=== PATIENT | female | born 1990 | race Caucasian/White ===

== ENCOUNTER 2022-11-28 14:16 | Day surgery (SDC) | payer OTHER ==
[2022-11-28 15:03] VITALS: BMI 26.6
[2022-11-28] MEDS ORDERED: hydrALAZINE 20 MG/ML VIAL SLOW IVP PRN (15:44)
== END 2022-11-28 17:00 | disposition home or self-care (01) ==
LOC: CSHLD/OP 14:16
PROVIDERS: ATTEND Obstetrics & Gynecology
DX: O26.853 Spotting complicating pregnancy, third trimester (principal); O26.893 Other specified pregnancy related conditions, third trimester; R10.9 Unspecified abdominal pain; Z88.2 Allergy status to sulfonamides; Z88.5 Allergy status to narcotic agent; Z88.1 Allergy status to other antibiotic agents; Z91.040 Latex allergy status; Z3A.36 36 weeks gestation of pregnancy
CPT/HCPCS: 87480; 87510; 87660; 99283

== ENCOUNTER 2022-12-23 19:30 | Inpatient (IN) | payer OTHER ==
[2022-12-31] MEDS ORDERED: Bupivacaine/Epinephrine 0.25% 30 ML VIAL ONE (08:00)
[2022-12-31] MEDS ORDERED: Ondansetron PF 4 MG/2 ML Vial IVP PRN (21:48)
[2022-12-31] MEDS ORDERED: Diphenoxylate HCl/Atropine Tablet PO PRN ×2 (21:48)
[2022-12-31] MEDS ORDERED: NS w/ Oxytocin 30 units 500 ML IV SCH ×2 (21:48)
[2022-12-31] MEDS ORDERED: Zolpidem Tartrate 5 MG TAB PO PRN (21:48)
[2022-12-31] MEDS ORDERED: Methylergonovine 0.2 MG/ML VIAL IM PRN (21:48)
[2022-12-31] MEDS ORDERED: Carboprost 250 MCG/ML AMP IM PRN (21:48)
[2022-12-31] MEDS ORDERED: hydrALAZINE 20 MG/ML VIAL SLOW IVP PRN (21:48)
[2022-12-31] MEDS ORDERED: Acetaminophen 500 MG TAB PO PRN (21:48)
[2022-12-31] MEDS ORDERED: Acetaminophen/Codeine 30-300mg Tablet PO PRN ×2 (21:48)
[2022-12-31] MEDS ORDERED: Lidocaine 1% (PF) 30 ML VIAL SC PRN (21:48)
[2022-12-31] MEDS ORDERED: Lactated Ringer's 1,000 ML IV SCH (21:48)
[2022-12-31] MEDS ORDERED: Ibuprofen 800 MG TAB PO PRN (21:48)
[2022-12-31] MEDS ORDERED: Promethazine HCl 25 MG/ML VIAL IM PRN (21:48)
[2022-12-31] MEDS ORDERED: Misoprostol 200 MCG TAB PR PRN (21:48)
[2022-12-31 22:56] LABS: Mean Corpuscular HGB CONC 33.3 g/dL (32.0-36.0); Mean Corpuscular Hemoglobin 28.1 pg (27.0-33.0); Mean Corpuscular Volume 84.4 fl (81.6-98.3); Mean Platelet Volume 10.5 fl (7.4-10.4); Platelet Count 238 10x3/uL (150-450); RBC Distribution Width 13.5 % (11.5-14.5); Red Blood Cell (RBC) Count 3.91 10x6/uL (3.90-5.03); White Blood Cell (WBC) Count 10.6 10x3/uL (3.5-10.5)
[2022-12-31] MEDS: Misoprostol 100 MCG TAB VAG SCH (23:10)
[2023-01-01 00:05] LABS: HBSAg Index 0.16 S/CO (0-0.99); Hep B Surf Ag Non-Reactive S/CO (NonReactive); Syphilis Antibody Nonreactive (Nonreactive); Syphilis Antibody Index 0.04 S/CO (<1.00 Non-Reactive)
[2023-01-01 00:20] VITALS: BMI 27.4
[2023-01-01 03:47] LABS: SARS-CoV-2 NAA Rapid Test Not Detected (NotDetected)
[2023-01-01 07:44] LABS: ALT (SGPT) 11 U/L (8-55); AST (SGOT) 18 U/L (5-34); Albumin 3.1 g/dL (3.5-5.0); Alkaline Phosphatase 263 U/L (40-110); Anion Gap 14 mmol/L (10-20); BUN (Urea Nitrogen) 8 mg/dL (7.0-18.7); Bilirubin, Total 0.3 mg/dL (0.2-1.2); Calc. Creatinine Clearance 134 mL/min (70-130); Calcium 8.6 mg/dL (7.8-10.44); Carbon Dioxide 19 mmol/L (22-29); Chloride 107 mmol/L (98-107); Estimated GFR 110; Globulin 2.8 g/dL (2.4-3.5); Glucose 102 mg/dL (70-105); Potassium 3.4 mmol/L (3.5-5.1); Protein, Total 5.9 g/dL (6.0-8.3); Sodium 137 mmol/L (136-145)
[2023-01-01] MEDS ORDERED: Fentanyl 2 mcg/Bup 0.1% Cadd 100 ML ONE ×2 (08:00→15:43)
[2023-01-01] MEDS ORDERED: Fentanyl 100 MCG/2 ML VIAL ONE ×2 (08:41→23:15)
[2023-01-01] MEDS ORDERED: diphenhydrAMINE 50 MG/ML VIAL IVP PRN (10:49)
[2023-01-01] MEDS ORDERED: ePHEDrine Sulfate 50 MG/10 ML VIAL SLOW IVP PRN (10:49)
[2023-01-01] MEDS ORDERED: Acetaminophen 325 MG TAB PO PRN (10:49)
[2023-01-01] MEDS ORDERED: Ondansetron PF 4 MG/2 ML Vial IVP PRN (10:49)
[2023-01-01] MEDS ORDERED: Moisturizing Cream (Eucerin) 113 GM JAR TOP PRN (10:49)
[2023-01-01] MEDS ORDERED: Promethazine HCl 25 MG/ML VIAL IM PRN (10:49)
[2023-01-01] MEDS ORDERED: Naloxone HCl 0.4 mg/ml Vial IVP PRN ×2 (10:49)
[2023-01-01] MEDS ORDERED: Lactated Ringer's 500 ML IV PRN (10:49)
[2023-01-01] MEDS ORDERED: Communication Order-Pharmacy FS SCH (11:00)
[2023-01-01] MEDS ORDERED: Fentanyl 2 mcg/Bupivacaine 0.1% Cassette 100 ML EPIDURAL SCH (11:00)
[2023-01-01] MEDS ORDERED: Azithromycin 500 MG VIAL ONE (22:21)
[2023-01-01] MEDS ORDERED: Famotidine/PF 20 mg/2ml Vial ONE (22:21)
[2023-01-01] MEDS ORDERED: CEFAZOLIN 2 GM VIAL ONE (22:21)
[2023-01-01] MEDS ORDERED: Bicitra 30 ML UDCUP PO PRN (22:28)
[2023-01-01] MEDS ORDERED: Famotidine/PF 20 mg/2ml Vial SLOW IVP PRN (22:28)
[2023-01-01] MEDS ORDERED: CEFAZOLIN 2 GM in Sodium Chloride 0.9% 100 ML IVPB SCH (22:30)
[2023-01-01] MEDS ORDERED: Azithromycin 500 MG in Sodium Chloride 0.9% 250 ML 250 ML IVPB SCH (22:30)
[2023-01-01] MEDS ORDERED: Ondansetron PF 4 MG/2 ML Vial ONE (23:05)
[2023-01-01] MEDS ORDERED: Phenylephrine 40 MG/NS 250 ML 250 ML ONE (23:05)
[2023-01-01] MEDS ORDERED: Oxytocin 10 UNITS/ML VIAL ONE (23:05)
[2023-01-01] MEDS ORDERED: Ketorolac Tromethamine 30 MG/ML VIAL ONE (23:05)
[2023-01-01] MEDS ORDERED: PROPOFOL 20 ML ONE (23:15)
[2023-01-01] MEDS ORDERED: Succinylcholine 200 MG/10 ml SYRINGE FS ONE (23:26)
[2023-01-01] MEDS ORDERED: Lidocaine 1% (PF) 30 ML VIAL ONE (23:26)
[2023-01-01] MEDS ORDERED: Morphine PF 10 MG/10 ML VIAL ONE (23:34)
[2023-01-02] MEDS ORDERED: Ondansetron HCl/PF 4 MG/2 ML Vial IVP PRN (00:08)
[2023-01-02] MEDS ORDERED: Ondansetron PF 4 MG/2 ML Vial IVP PRN (00:08)
[2023-01-02] MEDS ORDERED: Naloxone HCl 0.4 mg/ml Vial IV PRN (00:08)
[2023-01-02] MEDS ORDERED: diphenhydrAMINE 50 MG/ML VIAL IVP PRN (00:08)
[2023-01-02] MEDS ORDERED: Promethazine HCl 25 MG/ML VIAL IM PRN ×2 (00:08)
[2023-01-02] MEDS ORDERED: Promethazine HCl 25 MG SUPP PR PRN (00:08)
[2023-01-02] MEDS ORDERED: Meperidine HCl/PF 25 MG/ML VIAL SLOW IVP PRN (00:08)
[2023-01-02] MEDS ORDERED: Moisturizing Cream (Eucerin) 113 GM JAR TOP PRN (00:08)
[2023-01-02] MEDS ORDERED: Ketorolac Tromethamine 30 MG/ML VIAL IVP PRN (00:08)
[2023-01-02] MEDS ORDERED: Naloxone HCl 0.4 mg/ml Vial IVP PRN ×2 (00:08)
[2023-01-02] MEDS ORDERED: Fentanyl 100 MCG/2 ML VIAL ONE (00:11)
[2023-01-02] MEDS ORDERED: Communication Order-Pharmacy FS SCH (00:15)
[2023-01-02] MEDS ORDERED: Lanolin Ointment 7 GM TUBE TOP PRN (03:21)
[2023-01-02] MEDS ORDERED: Bisacodyl 10 MG SUPP PR PRN (03:21)
[2023-01-02] MEDS ORDERED: hydrALAZINE 20 MG/ML VIAL SLOW IVP PRN (03:21)
[2023-01-02] MEDS ORDERED: diphenhydrAMINE 25 MG CAP PO PRN (03:21)
[2023-01-02] MEDS ORDERED: Simethicone Chewable 80 MG TAB PO PRN (03:21)
[2023-01-02] MEDS ORDERED: Boostrix 0.5 ML (Tdap) VIAL (>/=7 yrs of age) IM ONE (03:21)
[2023-01-02] MEDS: Misoprostol 100 MCG TAB VAG SCH ×2 (03:55→03:56)
[2023-01-02 04:29] LABS: Hemoglobin 10.8 g/dL (12.0-15.5); Mean Corpuscular Hemoglobin 28.4 pg (27.0-33.0); Mean Corpuscular Volume 86.1 fl (81.6-98.3); Mean Platelet Volume 10.7 fl (7.4-10.4); Platelet Count 235 10x3/uL (150-450); RBC Distribution Width 13.6 % (11.5-14.5); White Blood Cell (WBC) Count 22.3 10x3/uL (3.5-10.5)
[2023-01-02] MEDS: Ferrous Sulfate 325 MG TAB PO SCH (07:34)
[2023-01-02] MEDS: Docusate 100 MG CAP PO SCH ×2 (07:42→21:03)
[2023-01-02] MEDS: Prenatal Vitamin 1 TAB PO SCH (07:42)
[2023-01-02] MEDS: HYDROcodone/Acetaminophen 5/325 mg Tablet PO PRN ×3 (12:24→21:02)
[2023-01-03] MEDS: HYDROcodone/Acetaminophen 5/325 mg Tablet PO PRN ×5 (01:42→20:52)
[2023-01-03] MEDS: Ferrous Sulfate 325 MG TAB PO SCH ×3 (03:28→20:42)
[2023-01-03] MEDS: Ibuprofen 800 MG TAB PO SCH ×3 (05:42→22:45)
[2023-01-03] MEDS: Docusate 100 MG CAP PO SCH ×2 (08:16→20:51)
[2023-01-03] MEDS: Prenatal Vitamin 1 TAB PO SCH (08:16)
[2023-01-04] MEDS: HYDROcodone/Acetaminophen 5/325 mg Tablet PO PRN ×3 (00:45→13:49)
[2023-01-04 01:27] VITALS: TEMP 97.9
[2023-01-04] MEDS: Ibuprofen 800 MG TAB PO SCH ×2 (06:03→13:49)
[2023-01-04] MEDS: Ferrous Sulfate 325 MG TAB PO SCH (07:05)
[2023-01-04] MEDS: Docusate 100 MG CAP PO SCH (07:33)
[2023-01-04] MEDS: Prenatal Vitamin 1 TAB PO SCH (07:33)
[2023-01-04 08:10] VITALS: BP 121/80
== END 2023-01-04 17:30 | disposition home or self-care (01) | DRG 787 ==
LOC: CSHLD 12-31 20:53 → CSHPED 01-02 02:19
PROVIDERS: ADMIT Obstetrics & Gynecology; ATTEND Obstetrics & Gynecology
PROC: 10D00Z1 Extraction of Products of Conception, Low, Open Approach (ICD-10-PCS; principal; 2023-01-01)
PROC: 10907ZC Drainage of Amniotic Fluid, Therapeutic from Products of Conception, Via Natural or Artificial Opening (ICD-10-PCS; 2023-01-01)
DX: O99.62 Diseases of the digestive system complicating childbirth (principal); O98.52 Other viral diseases complicating childbirth; B00.9 Herpesviral infection, unspecified; O32.4XX0 Maternal care for high head at term, not applicable or unspecified; O62.1 Secondary uterine inertia; Z20.822 Contact with and (suspected) exposure to COVID-19; K21.9 Gastro-esophageal reflux disease without esophagitis; O77.0 Labor and delivery complicated by meconium in amniotic fluid; O32.8XX0 Maternal care for other malpresentation of fetus, not applicable or unspecified; Z98.890 Other specified postprocedural states; Z79.899 Other long term (current) drug therapy; Z37.0 Single live birth; Z3A.41 41 weeks gestation of pregnancy; Z90.49 Acquired absence of other specified parts of digestive tract; Z88.2 Allergy status to sulfonamides; Z88.1 Allergy status to other antibiotic agents; Z88.6 Allergy status to analgesic agent
CPT/HCPCS: 36415; 51702; 80053; 85027; 86780; 86850; 86900; 86901; 87340; J0360; J1885; J2001; J2274; J2405; J2550; J2590; J2704; J3010; S0028; U0002